=== PATIENT | female | born 1965 | race Caucasian/White ===

== ENCOUNTER 2021-12-03 19:51 | Emergency (ER) | payer OTHER ==
[~2021-12-03 19:51] MED LIST: HYDROCHLOROTHIA25 MG PO
[2021-12-03 20:18] LABS: HEMOGLOBIN 10.5 gm/dl (12.3-15.3); RED BLOOD COUNT 3.96 M/UL (4.00-5.10); WHITE BLOOD COUNT 11.9 K/UL (4.5-11.0)
[2021-12-03 20:46] LABS: BUN/CREATININE RATIO 13 (0-10)
[2021-12-04] MEDS ORDERED: IBUPROFEN600 MG PO (01:04)
[2021-12-04] MEDS ORDERED: CEFUROXIME500 MG PO (01:04)
[2021-12-04] MEDS ORDERED: ZOFRAN ODT 4 MG4 MG PO (01:04)
== END 2021-12-04 03:04 | disposition home or self-care (01) ==
LOC: ER1 19:51
PROVIDERS: Physician Assistant Medical
DX: N10 Acute pyelonephritis (principal); N39.0 Urinary tract infection, site not specified; J44.9 Chronic obstructive pulmonary disease, unspecified; F17.210 Nicotine dependence, cigarettes, uncomplicated; Z88.5 Allergy status to narcotic agent; Z88.0 Allergy status to penicillin
CPT/HCPCS: 80053; 81001; 83605; 83690; 85025; 87040; 96374; 96375; 99284; J0696; J1885; Q9967